=== PATIENT | male | born 1980 | race Caucasian/White ===

== ENCOUNTER 2017-06-27 07:43 | Emergency (ER) | payer SELFPAY ==
[~2017-06-27] VITALS: Ht 170.2 cm; Wt 86.0 kg
[2017-06-27 14:31] VITALS: BP 139/74
== END 2017-06-27 14:32 | disposition home or self-care (01) ==
LOC: ER 08:03
DX: J32.9 Chronic sinusitis, unspecified (principal); R25.3 Fasciculation; F12.10 Cannabis abuse, uncomplicated; Z96.659 Presence of unspecified artificial knee joint
CPT/HCPCS: 99283